=== PATIENT | female | born 1945 | race Caucasian/White ===

== ENCOUNTER 2019-02-25 10:52 | Emergency (ER) | payer MEDICARE ==
[2019-02-25] MEDS ORDERED: DUONEB 0.5-3 MG/3 ml Neb IH ONE ×4 (11:20→14:00)
--- NOTE | 2019-02-25 11:23 | ERPHSYRPT ---
- History of Present Illness Time Seen by Provider: 02/25/19 11:05 Source: patient, EMS, other (dialysis clinic) Exam Limitations: no limitations Patient Subjective Stated Complaint: [place] dialyssis stated "She was getting dialysed and she went unresponsive and vomited. We had to suction her. We took 3.5 off and gave her 2.5 l NS back.". Pt states "I am having a hard time getting my breath." Triage Nursing Assessment: Pt presented alert and oriented x 3, skin pwd Pt able to speak in clear full setences. PT smells strongly with a foul odor, pt breathign rapidly, stated she is nauseated. and coughing intermitatantly. Physician History: at dialysis clinic this AM: syncopal episode , hypotension 3.5 L off 2.5 L back pos: n/v X1 possible aspiration . pos: dyspnea n current BP{ 114/68 non- rebreather- 96% Witnessed: other (dialysis staff) Prior Episodes: single episode today Timing/Duration: today (at dialysis clinic was the is) Precipitating Factors: unknown Loss of Consciousness: brief (seconds), memory impairment (he is monitored) Charcter of event(s): other (occurred will on the dialysis machine ) Allergies/Adverse Reactions: ALEIDA Inhibitors Allergy (Severe, Verified 02/25/19 11:09) morphine Allergy (Severe, Verified 02/25/19 11:09) Sulfa (Sulfonamide Antibiotics) Allergy (Severe, Verified 02/25/19 11:09) Home Medications: Acetaminophen 325 mg PO DAILY 02/25/19 [History] Allopurinol 300 mg [Zyloprim 300 mg] 300 mg PO DAILY 02/25/19 [History] Aspirin 81 gm Chew [Baby Aspirin 81 mg Chew] 81 mg PO DAILY 02/25/19 [ History] Atorvastatin Calcium 20 mg PO DAILY 02/25/19 [History] Betamethasone Dipropionate 02/25/19 [History] Buspirone HCl [Buspar] 10 mg PO DAILY 02/25/19 [History] Cetirizine HCl [Zyrtec] 10 mg PO DAILY 02/25/19 [History] Ergocalciferol (Vitamin D2) [Vitamin D] 1 cap PO DAILY 02/25/19 [History] Ferric Citrate [Auryxia] 02/25/19 [History] Ferric Citrate [Auryxia] 210 mg PO DAILY 02/25/19 [History] Ferrous Sulfate 325 mg PO DAILY 02/25/19 [History] Gabapentin 02/25/19 [History] Hydralazine HCl 10 mg PO DAILY 02/25/19 [History] Insulin Aspart [NovoLOG Insulin] 1 unit IM DAILY 02/25/19 [History] Insulin Glargine [Lantus Insulin] 1 unit IM DAILY 02/25/19 [History] Levothyroxine Sodium 100 Mcg [Synthroid 100 Mcg] 100 mcg PO DAILY 02/25/19 [History] Melatonin 5 mg PO DAILY 02/25/19 [History] Metoprolol Tartrate 50 mg [Lopressor 50 MG] 02/25/19 [History] Metoprolol Tartrate 50 mg [Lopressor 50 MG] 50 mg PO DAILY 02/25/19 [ History] Ranitidine HCl [Heartburn Relief] 150 mg PO DAILY 02/25/19 [History] Ropinirole HCl 0.25 mg PO DAILY 02/25/19 [History] Syringe and Needle,Insulin,1Ml [Insulin Syringe] 02/25/19 [History] Hx Tetanus, Diphtheria Vaccination/Date Given: Yes Hx Influenza Vaccination/Date Given: Yes Hx Pneumococcal Vaccination/Date Given: Yes Immunizations Up to Date: Yes - Past Medical History Pertinent Past Medical History: Yes Neurological History: No Pertinent History ENT History: No Pertinent History Cardiac History: High Cholesterol, Hypertension Respiratory History: COPD Endocrine Medical History: Diabetes Type I Musculoskeletal History: Arthritis GI Medical History: GERD History: Dialysis, Renal Disease Psycho-Social History: Depression Female Reproductive Disorders: No Pertinent History - Past Surgical History Past Surgical History: Yes Other Surgical History: dialysis shunt placed. umesh. appi - Social History Smoking Status: Never smoker Exposure to second hand smoke: No Drug Use: none Patient Lives Alone: No - Female History Hx Now: No - Review of Systems Constitutional: Fatigue Eyes: No Symptoms Ears, Nose, & Throat: No Symptoms Respiratory: Cough, Dyspnea, Wheezing (aand) Cardiac: No Symptoms Abdominal/Gastrointestinal: No Symptoms Genitourinary Symptoms: No Symptoms (and is using) Musculoskeletal: Arthralgias Skin: No Symptoms Neurological: No Symptoms Psychological: No Symptoms Endocrine: No Symptoms Hematologic/Lymphatic: No Symptoms Immunological/Allergic: No Symptoms All Other Systems: Reviewed and Negative (and) Physical Exam - Nursing Vital Signs Nursing Vital Signs: Initial Vital Signs Pulse Rate 92 H 02/25/19 11:18 Respiratory Rate 24 02/25/19 11:18 Blood Pressure 114/68 02/25/19 11:18 O2 Sat by Pulse Oximetry 98 02/25/19 11:18 Pain Scale Pain Intensity 0 - Physical Exam General Appearance: moderate distress Eye Exam: bilateral eye: normal inspection Ears, Nose, Throat Exam: normal ENT inspection, TMs normal, moist mucous membranes Neck Exam: non-tender, other (DJD WITH DECREASED ROM), No meningismus, No lymphadenopathy Respiratory: respiratory distress (MILD-MODERATE ), diminished breath sounds, accessory muscle use, prolonged expirations, crackles/rales, wheezing (DIFFUSE) Cardiovascular: regular rate/rhythm, murmur (GRD2/6 SYS M APEX PMI LAT DISPLACED POS: JVD , POS: 1+ PITTING EDEMA ), capillary refill <2 sec Gastrointestinal: soft, normal bowel sounds, other, No tenderness, No guarding, No rebound Pelvic Exam: deferred Rectal Exam: hemorrhoids Extremity Exam: normal inspection, other (DECREASED ROM SECONDARY TO GENERAL HABITUS/AGE OBESITY) Mental Status: alert, cooperative, other (INITIAL MS CHANGE WHICH HAS IMPROVED WITH TREATMENT) Coordination/Gait: normal finger to nose Motor/Sensory: no motor deficit, No pronator drift (R), No pronator drift (L) O2 Delivery: High Flow (HAS IMPROVED WITH TREATMENT NOW ON NC 4/LPM 98% SAT) - Course Nursing assessment & vital signs reviewed: Yes Ordered Tests: Active Orders 24 hr Category Date Time Status Gu [Catheter-[place] Gu] STAT Care 02/25/19 11:25 Active CHEST 1 VIEW (PORTABLE) Stat Exams 02/25/19 11:22 Completed BLOOD CULTURE Stat Lab 02/25/19 11:40 Received CBC W DIFF Stat Lab 02/25/19 11:20 Completed CK-Creatinine Phosphokinase Stat Lab 02/25/19 11:20 Completed CMP Stat Lab 02/25/19 11:20 Completed CULTURE,URINE Stat Lab 02/25/19 11:29 Ordered Manual Differential NC Stat Lab 02/25/19 11:20 Completed NT PRO BNP Stat Lab 02/25/19 11:20 Completed TROPONIN Q3H Lab 02/25/19 11:20 Completed TROPONIN Q3H Lab 02/25/19 14:30 Ordered TROPONIN Q3H Lab 02/25/19 17:30 Ordered TROPONIN Q3H Lab 02/25/19 20:30 Ordered TROPONIN Q3H Lab 02/25/19 23:30 Ordered UA W/RFX UR CULTURE Stat Lab 02/25/19 11:29 Ordered Respiratory Therapy Assessment DAILY RT 02/25/19 11:39 Active Medication Summary Discontinued Medications Generic Name Dose Route Start Last Admin Trade Name Freq PRN Reason Stop Dose Admin Albuterol/Ipratropium 3 ml 02/25/19 11:20 02/25/19 11:38 Duoneb 0.5-3 Mg/3 Ml Neb IH 02/25/19 11:21 3 ml STAT ONE Administration Albuterol/Ipratropium Confirm 02/25/19 11:34 Duoneb 0.5-3 Mg/3 Ml Neb Administered 02/25/19 11:35 Dose 3 ml IH .STK-MED ONE Ondansetron HCl 4 mg 02/25/19 11:29 02/25/19 11:33 Zofran 4 Mg/2 Ml Vial IV 02/25/19 11:30 4 mg STAT ONE Administration Ondansetron HCl Confirm 02/25/19 11:30 Zofran 4 Mg/2 Ml Vial Administered 02/25/19 11:31 Dose 4 mg .ROUTE .STK-MED ONE Lab/Rad Data: Laboratory Result Diagrams 02/25/19 11:20 02/25/19 11:20 Laboratory Results 02/25/19 02/25/19 02/25/19 Range/Units 11:20 11:20 11:20 WBC 8.7 (4.0-10.5) K/mm3 RBC 3.55 L (4.1-5.4) M/mm3 Hgb 12.0 (12.0-16.0) gm/dl Hct 38.0 (35-47) % MCV 107.0 H (78-100) fl MCH 33.8 H (26-32) pg MCHC 31.6 L (32-36) g/dl RDW 15.1 H (11.5-14.0) % Plt Count 133 L (150-450) K/mm3 MPV 10.3 H (6-9.5) fl Sodium 133 L (137-145) mmol/L Potassium 3.7 (3.5-5.1) mmol/L Chloride 98 (98-107) mmol/L Carbon Dioxide 23 (22-30) mmol/L Anion Gap 16.1 H (5-15) MEQ/L BUN 24 H (7-17) mg/dL Creatinine 2.51 H (0.52-1.04) mg/dL Estimated GFR 19.9 ML/MIN Glucose 156 H (74-106) mg/dL Calcium 8.6 (8.4-10.2) mg/dL Total Bilirubin 0.60 (0.2-1.3) mg/dL AST 36 (14-36) U/L ALT 14 (0-35) U/L Alkaline Phosphatase 106 (38-126) U/L Creatine Kinase 39 (30-135) U/L Troponin I 0.045 H* (0.000-0.034) ng/mL NT-Pro-B Natriuret Pep 72458 H (0-900) pg/mL Serum Total Protein 7.9 (6.3-8.2) g/dL Albumin 4.0 (3.5-5.0) g/dL - Progress Progress: improved - Departure Departure Disposition: Transfer ([facility] ) Clinical Impression: Syncope due to orthostatic hypotension, CHF (congestive heart failure), Renal failure Condition: Stable Critical Care Time: Yes Critical Care Time(excluding separately billable procedures): Critical 75-104 mins (DIRECT PATIENT CARE FOR STABILIZATION , DISCUSSION OF CONDITION WITH FAMILY/TRANSFER DOCTOR) Referrals: EZEKIEL KOVACS [Primary Care Provider] - Instructions: Heart Failure
[2019-02-25] MEDS ORDERED: Zofran 4 MG/2 ML VIAL IV ONE (11:29)
[2019-02-25] MEDS ORDERED: Zofran 4 MG/2 ML VIAL ONE (11:30)
[2019-02-25 11:32] LABS: Mean Corpuscular Hemoglobin 33.8 pg (26-32); Mean Corpuscular Hgb Concent. 31.6 g/dl (32-36); Mean Platelet Volume 10.3 fl (6-9.5); Platelet Count 133 K/mm3 (150-450); Red Blood Count 3.55 M/mm3 (4.1-5.4); Red Cell Distribution Width 15.1 % (11.5-14.0); White Blood Count 8.7 K/mm3 (4.0-10.5)
[2019-02-25 11:48] LABS: ANION GAP 16.1 MEQ/L (5-15); BILIRUBIN,TOTAL 0.6 mg/dL (0.2-1.3); Calcium 8.6 mg/dL (8.4-10.2); Creatinine 1 2.51 mg/dL (0.52-1.04); Potassium 3.7 mmol/L (3.5-5.1); Total Protein 7.9 g/dL (6.3-8.2)
--- NOTE | 2019-02-25 12:31 | XRAY ---
Indication: Dyspnea. COPD. Comparison: None Portable chest is slightly rotated, underinflated, and clear. Heart is not enlarged with left subclavian/axillary endovascular stent grafts. Bony thorax demonstrates mild osteopenia, degenerative changes, and old left humerus fracture. Impression: Nonacute underinflated chest with chronic features.
[2019-02-25 13:04] LABS: BAND 2 % (0.0-2.0); Eosinophil 2 % (0.00-3.0); Lymphocytes 14 % (24-44); Monocyte 3 % (0.0-12.0); Neutrophils 79 % (36.0-66.0); Total Cells Counted 100
[2019-02-25 13:05] LABS: ANISOCYTOSIS 1+; Platelet Estimate NORMAL (NORMAL); Poikilocytosis 1+; Toxic Granulation 1+
[2019-02-25] MEDS ORDERED: ROCEPHIN 1 Gm-D5w 50 ml Bag** 1 G/50 ML IVPB IV STA (13:09)
[2019-02-25] MEDS ORDERED: TYLENOL EXTRA STRENGTH 500 MG PO STA (13:10)
[2019-02-25] MEDS ORDERED: ROCEPHIN 1 Gm-D5w 50 ml Bag** 1 G/50 ML IVPB IV ONE (13:16)
[2019-02-25] MEDS ORDERED: TYLENOL EXTRA STRENGTH 500 MG ONE (13:16)
[2019-02-25 13:45] VITALS: BP 116/58
[2019-02-25 14:07] VITALS: PULSE 98; O2SAT 99
== END 2019-02-25 14:16 | disposition short-term general hospital (02) ==
LOC: ED 10:52
DX: I95.1 Orthostatic hypotension (principal); R55 Syncope and collapse; I50.9 Heart failure, unspecified; N19 Unspecified kidney failure; Z99.2 Dependence on renal dialysis; E10.8 Type 1 diabetes mellitus with unspecified complications; I10 Essential (primary) hypertension; J44.9 Chronic obstructive pulmonary disease, unspecified; K21.9 Gastro-esophageal reflux disease without esophagitis; E78.00 Pure hypercholesterolemia, unspecified
CPT/HCPCS: 36415; 51702; 71045; 80053; 82550; 83880; 84484; 85025; 87040; 93005; 94640; 96365; 96374; 99285; 99291; 99292; J0696; J2405; A9270-GY